=== PATIENT | male | born 1950 | race Caucasian/White ===

== ENCOUNTER 2017-09-18 15:20 | Emergency (ER) | payer OTHER ==
[2017-09-18] MEDS ORDERED: NS 1,000 ML IV ONE (15:23)
[2017-09-18] MEDS ORDERED: ONDANSETRON 4 MG/2 ML VIAL IVP ONE (15:23)
--- NOTE | 2017-09-18 15:25 | EDPHY ---
H & P Time Seen by Provider: 09/18/17 15:24 HPI/ROS: CHIEF COMPLAINT: Syncope HISTORY OF PRESENT ILLNESS: The patient is a 67-year-old man who is brought to the emergency department by EMS after a syncopal event. He was getting out of his car when he stood up and felt lightheaded and fainted. He hit the back of his head on the ground and has a small laceration. He does not take blood thinners or any other medications. He woke up after about 10 sec and his girlfriend states that he was acting normally. He denies any headache or neck pain. He denies any injuries to his thorax or extremities. He denies feeling any palpitations or chest pain or shortness of breath during a prior to the event. He has not been ill recently. Paramedics state that when they tried to sit him up the scene initially he felt lightheaded again and had to lay back down. He felt nauseous but did not vomit. REVIEW OF SYSTEMS: Constitutional: denies: chills, fever, recent illness, recent injury EENTM: denies: blurred vision, double vision, nose congestion Respiratory: denies: cough, shortness of breath Cardiac: See HPI denies: chest pain, irregular heart rate, palpitations Gastrointestinal/Abdominal: denies: abdominal pain, diarrhea, nausea, vomiting, blood streaked stools Genitourinary: denies: dysuria, frequency, hematuria, pain Musculoskeletal: denies: joint pain, muscle pain Skin: denies: lesions, rash, jaundice, bruising Neurological: denies: headache, numbness, paresthesia, tingling, dizziness, weakness Hematologic/Lymphatic: denies: blood clots, easy bleeding, easy bruising Immunologic/allergic: denies: HIV/AIDS, transplant EXAM: GENERAL: Well-appearing, well-nourished and in no acute distress. HEAD: 2 cm laceration to occiput, bleeding controlled. normocephalic. EYES: Pupils equal round and reactive to light, extraocular movements intact, sclera anicteric, conjunctiva are normal. ENT: TMs normal, nares patent, oropharynx clear without exudates. Moist mucous membranes. NECK: Normal range of motion, supple without lymphadenopathy or JVD. LUNGS: Breath sounds clear to auscultation bilaterally and equal. No wheezes rales or rhonchi. HEART: Regular rate and rhythm without murmurs, rubs or gallops. ABDOMEN: Soft, nontender, normoactive bowel sounds. No guarding, no rebound. No masses appreciated. BACK: No CVA tenderness, no spinal tenderness, step-offs or deformities EXTREMITIES: Normal range of motion, no pitting or edema. No clubbing or cyanosis. NEUROLOGICAL: Cranial nerves II through XII grossly intact. Normal speech, normal gait. 5/5 strength, normal movement in all extremities, normal sensation PSYCH: Normal mood, normal affect. SKIN: Warm, dry, normal turgor, no visible rashes or lesions. Source: Patient Exam Limitations: No limitations - Medical/Surgical History Hx Asthma: No Hx Chronic Respiratory Disease: No Hx Diabetes: No Hx Cardiac Disease: No Hx Renal Disease: No Hx Cirrhosis: No Hx Alcoholism: No - Family History Significant Family History: No pertinent family hx - Social History Smoking Status: Never smoked Alcohol Use: Sober Constitutional: Initial Vital Signs Temperature (C) 37.3 C 09/18/17 15:30 Heart Rate 72 09/18/17 15:30 Respiratory Rate 16 09/18/17 15:30 Blood Pressure 126/75 H 09/18/17 15:30 O2 Sat (%) 94 09/18/17 15:30 O2 Delivery Mode Room Air Allergies/Adverse Reactions: penicillin G Allergy (Intermediate, Verified 09/18/17 15:37) codeine Allergy (Verified 09/18/17 15:38) erythromycin base Allergy (Verified 09/18/17 15:38) Home Medications: Medication Instructions Recorded Cholecalciferol Vit D3 [Vitamin D3 1,000 units PO DAILY 10/02/12 1000 units (OTC)] Cyanocobalamin [Vitamin B12 1000 5,000 mcg PO DAILY 10/02/12 MCG (OTC)] Glucosam/MSM/Chond/Dth166/Hyal 2 each PO DAILY 10/02/12 [Ylxmcrfzlyg-Uazubhstwnf-JHF Tb] Herbals/Supplements -Info Only 1 each PO AD 10/02/12 [place]-3 Fatty Acids [Fish Oil 1000 2,000 mg PO DAILY 10/02/12 mg (OTC)] Pharmacy Completed 10/02/12 10/02/12 Reconciled 10/02/12 10/02/12 Medical Decision Making - Diagnostics EKG Interpretation: An EKG obtained and was read and documented in trace view. Please see trace view for full reading and report. Sinus rhythm, ST elevation in lead V2 only, similar to previous Imaging Results: Imaging Impressions Chest X-Ray 09/18/17 15:24 Impression: Hypoventilatory chest with mild interstitial prominence that could be related to airways disease or fluid overload, with basilar atelectasis. Head CT 09/18/17 15:24 Impression: Negative. No acute fracture or evidence of acute intracranial injury. Findings discussed with Emergency Department physician, Prabhjot Reed on 2017, 15:57. Imaging: Discussed imaging studies w/ at home independent call center agent Radiologist Procedures: The patient's 2 cm scalp laceration was closed with Dermabond. Bleeding controlled. Patient tolerated this well. ED Course/Re-evaluation: 4:30 p.m. we discussed the test results which are very reassuring. His bleeding is currently controlled. We will clean it gently. He would prefer that we did not opened back up which seems reasonable. I will placed Dermabond to help close. He declines further observation or treatment. We discussed follow-up and possibly wearing a Holter monitor if this happens again. Differential Diagnosis: Partial list of the Differential diagnosis considered include but were not limited to; syncope, dehydration, electrolyte abnormality, head injury and although unlikely based on the history and physical exam, I also considered acute coronary disease, seizure, TIA, infection. I discussed these differential diagnoses and the plan with the patient as well as the usual and expected course. The patient understands that the diagnosis is provisional and that in medicine we are not always correct and that further workup is often warranted. Usual and customary warnings were given. All of the patient's questions were answered. The patient was instructed to return to the emergency department should the symptoms at all worsen or return, otherwise to followup with the physician as we discussed. - Data Points Laboratory Results: Laboratory Results 09/18/17 15:33 09/18/17 15:33 09/18/17 09/18/17 09/18/17 15:33 15:33 15:33 WBC 10.97 10^3/uL H 10^3/uL (3.80-9.50) RBC 4.39 10^6/uL L 10^6/uL (4.40-6.38) Hgb 14.1 g/dL g/dL (13.7-17.5) Hct 39.9 % L % (40.0-51.0) MCV 90.9 fL fL (81.5-99.8) MCH 32.1 pg pg (27.9-34.1) MCHC 35.3 g/dL g/dL (32.4-36.7) RDW 13.4 % % (11.5-15.2) Plt Count 190 10^3/uL 10^3/uL (150-400) MPV 11.0 fL fL (8.7-11.7) Neut % (Auto) 60.1 % % (39.3-74.2) Lymph % (Auto) 30.4 % % (15.0-45.0) [place] % (Auto) 7.4 % % (4.5-13.0) Eos % (Auto) 1.2 % % (0.6-7.6) Baso % (Auto) 0.5 % % (0.3-1.7) Nucleat RBC Rel Count 0.0 % % (0.0-0.2) Absolute Neuts (auto) 6.60 10^3/uL H 10^3/uL (1.70-6.50) Absolute Lymphs (auto) 3.33 10^3/uL H 10^3/uL (1.00-3.00) Absolute Monos (auto) 0.81 10^3/uL H 10^3/uL (0.30-0.80) Absolute Eos (auto) 0.13 10^3/uL 10^3/uL (0.03-0.40) Absolute Basos (auto) 0.06 10^3/uL 10^3/uL (0.02-0.10) Absolute Nucleated RBC 0.00 10^3/uL 10^3/uL (0-0.01) Immature Gran % 0.4 % % (0.0-1.1) Immature Gran # 0.04 10^3/uL 10^3/uL (0.00-0.10) PT 13.5 SEC SEC (12.0-15.0) INR 1.01 (0.83-1.16) APTT 25.2 SEC SEC (23.0-38.0) Sodium 143 mEq/L mEq/L (135-145) Potassium 3.9 mEq/L mEq/L (3.3-5.0) Chloride 107 mEq/L mEq/L (97-110) Carbon Dioxide 25 mEq/l mEq/l (22-31) Anion Gap 11 mEq/L mEq/L (8-16) BUN 22 mg/dL mg/dL (7-23) Creatinine 1.2 mg/dL mg/dL (0.7-1.3) Estimated GFR 60 Glucose 119 mg/dL H mg/dL (70-100) Calcium 9.3 mg/dL mg/dL (8.5-10.4) Troponin I < 0.012 ng/mL ng/mL (0.000-0.034) Medications Given: Discontinued Medications Sodium Chloride (Ns) 1,000 mls @ 0 mls/hr IV ONCE ONE; Wide Open PRN Reason: Protocol Stop: 09/18/17 15:24 Last Admin: 09/18/17 16:13 Dose: 1,000 mls Ondansetron HCl (Zofran) 4 mg IVP EDNOW ONE Stop: 09/18/17 15:24 Last Admin: 09/18/17 16:13 Dose: Not Given Departure - Departure Disposition: Home, Routine, Self-Care Clinical Impression: Syncope and collapse Scalp laceration Qualifiers: Encounter type: initial encounter Qualified Code(s): S01.01XA - Laceration without foreign body of scalp, initial encounter Condition: Fair Instructions: Laceration (ED), Syncope (ED), Skin Adhesive Care (ED) Referrals: OSCAR BROWN [Primary Care Provider] - As per Instructions
--- NOTE | 2017-09-18 15:33 | CPEKG ---
Heart Rate: 81 RR Interval: 741 P-R Interval: 160 QRSD Interval: 80 QT Interval: 392 QTC Interval: 455 P [place]: 51 QRS [place]: -7 T Wave [place]: 51 EKG Severity - NORMAL ECG - EKG Impression: SINUS RHYTHM EKG Impression: ST-elevation in V2 only similar to previous Electronically Signed By: Prabhjot Reed 18-Sep-2017 15:42:28
[2017-09-18 15:39] LABS: PLATELET COUNT 190 10^3/uL (150-400)
[2017-09-18 15:48] LABS: INR 1.01 (0.83-1.16); PROTIME(PATIENT) 13.5 SEC (12.0-15.0)
[2017-09-18] MEDS ORDERED: SKIN ADHESIVE (DERMABOND) 1 EACH TP ONE (16:49)
[2017-09-18 17:55] VITALS: BP 125/71
== END 2017-09-18 17:52 | disposition home or self-care (01) ==
LOC: EDUNIT#
PROC: 0HQ0XZZ Repair Scalp Skin, External Approach (ICD-10-PCS; principal; 2017-09-18)
DX: S01.01XA Laceration without foreign body of scalp, initial encounter (principal); R55 Syncope and collapse; E86.9 Volume depletion, unspecified; W18.09XA Striking against other object with subsequent fall, initial encounter
CPT/HCPCS: G0390

== ENCOUNTER → 2017-10-15 | Outpatient (CLI) | payer OTHER | LOC: BHFA 11:00 | PROVIDERS: ATTEND Internal Medicine Cardiovascular Disease | DX: R55 Syncope and collapse (principal) ==

== ENCOUNTER → 2017-11-05 | Outpatient (CLI) | payer OTHER | LOC: BHFA 10:45 | PROVIDERS: ATTEND Internal Medicine Cardiovascular Disease | DX: R55 Syncope and collapse (principal) ==

== ENCOUNTER → 2017-11-24 | Outpatient (CLI) | payer OTHER ==
--- NOTE | 2017-11-24 11:59 | CPEEG ---
[f rep st] ELECTROENCEPHALOGRAM ELECTROENCEPHALOGRAM DATE OF STUDY: 11/24/2017 DATE OF INTERPRETATION: 11/24/2017 INTERPRETATION: Normal EEG during wakefulness and drowsiness. There were no potentially epileptogen ic abnormalities present during the recording. REPORT: This EEG contains 10 Hz alpha activity to the posterior head regions. There was no abnormal activation at rest, during photic stimulation or hyperventilation. The patient became drowsy and fe ll asleep during the study. There was no abnormal activation during drowsiness, sleep, or during kaylyn es of arousal. /[id number]/MODL
== END ==
LOC: FCPNEURO 08:08
PROVIDERS: ATTEND Psychiatry & Neurology Neurology
DX: R40.20 Unspecified coma (principal)